=== PATIENT | male | born 1950 | race Caucasian/White ===

== ENCOUNTER 2017-11-27 10:55 | Outpatient (CLI) | payer MEDICARE ==
[2017-11-27 12:13] LABS: #Eosinphils 0.1 thou/uL (0.0-0.7); #Lymphocytes 2.1 thou/uL (1.20-3.40); #Monocytes 0.5 thou/uL (0.11-0.59); #Neutrophils 5.2 thou/uL (1.40-6.50); %Basophils 0.2 % (0.0-1.0); %Eosinophils 1.6 % (0.0-10.0); %Lymphocytes 26.8 % (21.0-51.0); %Monocytes 6.2 % (0.0-10.0); %Neutrophils 65.3 % (42.0-75.0); Hemoglobin 15.9 g/dL (14.0-18.0); Mean Corpuscular HGB CONC 33.7 g/dL (32.0-36.0); Mean Corpuscular Hemoglobin 29.7 pg (27.0-31.0); Mean Platelet Volume 6.5 fL (7.4-10.4); Platelet Count 272 thou/uL (130-400); RBC Distribution Width 12.1 % (11.5-14.5); Red Blood Cell (RBC) Count 5.37 mill/uL (4.70-6.10)
[2017-11-27 12:32] LABS: Anion Gap 11 mmol/L (10-20); BUN (Urea Nitrogen) 18 mg/dL (8.4-25.7); Calc. Creatinine Clearance 0 mL/min (70-130); Calcium 9.7 mg/dL (7.8-10.44); Carbon Dioxide 27 mmol/L (23-31); Chloride 106 mmol/L (98-107); Estimated GFR-MDRD 59; Glucose 105 mg/dL (80-115); Potassium 4.9 mmol/L (3.5-5.1); Sodium 139 mmol/L (136-145)
--- NOTE | 2017-11-28 07:35 | EKG ---
Test Reason : Blood Pressure : / mmHG Vent. Rate : 048 BPM Atrial Rate : 048 BPM P-R Int : 188 ms QRS Dur : 086 ms QT Int : 414 ms P-R-T Axes : 057 033 018 degrees QTc Int : 369 ms Marked sinus bradycardia Abnormal ECG When compared with ECG of 11-AUG-2015 09:59, No significant change was found Confirmed by DR. Светлана GONZALEZ (3) on 11/28/2017 7:34:53 AM Referred By: LAUREL Confirmed By:DR. Светлана GONZALEZ
== END 2017-11-27 10:56 | disposition home or self-care (01) ==
LOC: LABBT 10:55
PROVIDERS: ATTEND Specialist
DX: Z01.818 Encounter for other preprocedural examination (principal); K64.8 Other hemorrhoids
CPT/HCPCS: 80048; 85025; 93005; 93010

== ENCOUNTER 2017-12-03 06:28 | Day surgery (SDC) | payer MEDICARE ==
[2017-11-27 11:14] VITALS: BMI 27.1
[2017-12-03] MEDS ORDERED: Ketorolac Tromethamine 30 MG/ML VIAL ONE (07:28)
[2017-12-03] MEDS ORDERED: cefOXitin 2 GM, Syringe 1 ML in Sterile Water 10 ML SLOW IVP ONE (07:45)
[2017-12-03] MEDS ORDERED: Fentanyl 250 MCG/5 ML VIAL ONE (08:15)
[2017-12-03] MEDS ORDERED: Midazolam HCl 2 mg/2 ml Vial ONE (08:15)
[2017-12-03] MEDS ORDERED: Lidocaine 2% Jelly 5 ML TUBE ONE (08:17)
[2017-12-03] MEDS ORDERED: Bupivacaine/Epinephrine 0.25% 30 ML VIAL ONE (08:17)
[2017-12-03] MEDS ORDERED: HYDROcodone/Acetaminophen 5/325 mg Tablet ONE (11:03)
[2017-12-03] MEDS ORDERED: Glycopyrrolate 0.2 MG/ML 5 ML SYRINGE ONE (13:41)
[2017-12-03] MEDS ORDERED: ePHEDrine/0.9% NaCl/PF SYRINGE 50 mg/10 ml ONE (13:41)
[2017-12-03] MEDS ORDERED: PROPOFOL 200 MG/20 ML VIAL ONE (13:41)
[2017-12-03] MEDS ORDERED: Lidocaine 1% PF 5 ML VIAL ONE (13:41)
--- NOTE | 2017-12-04 09:38 | OP ---
DATE OF PROCEDURE: 12/03/2017 PREOPERATIVE DIAGNOSIS: Bleeding internal hemorrhoids. POSTOPERATIVE DIAGNOSIS: Bleeding internal hemorrhoids. OPERATION PERFORMED: PPH stapled hemorrhoidectomy. SURGEON: Aly Cruz M.D. ANESTHESIA: General endotracheal. INDICATIONS: The patient is a 67-year-old white male who presents with a long history of intermitten t problems with his hemorrhoids and progressive recent bleeding. He has no significant external hemo rrhoidal disease. He is taken to the operating room at this time for a stapled hemorrhoidectomy. PROCEDURE IN DETAIL: Informed consent was obtained. The patient was taken to the operating room whe re general endotracheal anesthesia was obtained with the patient in supine position. He was rolled o blanco into a prone jackknife position. Buttocks were taped apart and the perianal area was trimmed of hair. The area was prepped with Betadine, draped in sterile fashion. Local anesthetic was infiltrat ed using 0.25% Marcaine with epinephrine in a 4 quadrant intersphincteric fashion. The anus was gent ly dilated. Anal retractor was positioned and secured in place with 4 interrupted sutures of 2-0 Jose ryl. The partial obturator was used to place a pursestring suture of 2-0 Prolene several centimeters proximal to the dentate line. The stapler was obtained and maximally opened and the anvil was posit ioned above the pursestring suture. The suture was then secured snugly around the post of the staple r. The tails of the suture was then withdrawn through the lateral openings of the stapler and tracti on was applied as the stapler was closed. With the stapler at least 4 cm within the anal canal, the stapler was then fired and removed. This was inspected and found to be of appropriate width and thic kness. The staple line was carefully inspected. There was some minor oozing which was controlled wi th interrupted sutures of 3-0 Vicryl. The anal retractor was then removed. An internal dressing was placed of Gelfoam with lidocaine jelly. A dry gauze dressing was placed externally along with mesh pants. There were no complications. Blood loss was negligible. The patient tolerated the procedure well and was taken to recovery room in stable condition.
== END 2017-12-03 11:26 | disposition home or self-care (01) ==
LOC: SDC 06:28
PROVIDERS: ATTEND Specialist
PROC: 06LY0ZC Occlusion of Hemorrhoidal Plexus, Open Approach (ICD-10-PCS; principal; 2017-12-03)
DX: K64.8 Other hemorrhoids (principal); I10 Essential (primary) hypertension; E78.5 Hyperlipidemia, unspecified; Z88.8 Allergy status to other drugs, medicaments and biological substances; Z98.890 Other specified postprocedural states
CPT/HCPCS: A4216; J0131; J0694; J1885; J2250; J3010

== ENCOUNTER 2018-06-04 14:15 | Outpatient (CLI) | payer MEDICARE | END 2018-06-04 14:16 | disposition home or self-care (01) | LOC: CTENTCT 14:15 | PROVIDERS: ATTEND Specialist | DX: R51 Headache (principal) | CPT/HCPCS: 70486 ==

== ENCOUNTER 2018-06-09 14:17 | Outpatient (CLI) | payer MEDICARE ==
--- NOTE | 2018-06-09 16:55 | RAD ---
CERVICAL SPINE FIVE VIEWS: HISTORY: Chronic neck pain for decades. COMPARISON: None. FINDINGS: The lateral masses of C1 and C2 articulate appropriately. Limited evaluation of the odontoid process on the open-mouth and [id number] projections. On the AP projection, there is facet hypertrophy. Soft tissue calcification in the left neck is like ly due to carotid atherosclerosis. In the neutral position, there is mild straightening of the normal cervical lordosis. There is 1.3 m m of retrolisthesis of C4 upon C5. Upon flexion, retrolisthesis does not change. Extension images w ere not performed. There is severe loss of disk space height and osteophyte formation at C3-C4. Mod erate loss of disk space height and osteophyte formation at C4-C5, C5-C6, and C6-C7. Additionally, t here is moderate change at C7-T1. IMPRESSION: Significant multilevel degenerative disk disease, as described above. Further interrogation with MRI is recommended. POS: [facility]
== END 2018-06-09 14:18 | disposition home or self-care (01) ==
LOC: SCSRAD 14:17
PROVIDERS: ATTEND Nurse Practitioner Family
DX: M54.2 Cervicalgia (principal); M50.30 Other cervical disc degeneration, unspecified cervical region
CPT/HCPCS: 72050

== ENCOUNTER 2018-07-01 12:48 | Outpatient (CLI) | payer MEDICARE ==
--- NOTE | 2018-07-01 14:33 | MRI ---
NONCONTRAST MRI CERVICAL SPINE: Date: 07/01/18 HISTORY: Cervical spondylosis without myelopathy. COMPARISON: None available. FINDINGS: Limited visualized base of brain demonstrates interval MRI appearance. There is nonspecific heterogeneity of the bone marrow. End plate degenerative changes are seen at the C3-4 level. C2-3 Level: There is mild loss of intervertebral disc height. Central spinal canal and neural forami na are patent. C3-4 Level: There is loss of intervertebral disc height. There is a broad based disc osteophyte comp roya which narrows the ventral subarachnoid space and results in slight flattening of the anterior asp ect of the spinal cord. There is bilateral neural foraminal narrowing, greater on the right. C4-5 Level: There is loss of intervertebral disc height. There is a broad based disc osteophyte comp roya. Findings result in mild generalized narrowing of the central spinal canal. Severe bilateral neur al foraminal narrowing is present. There are facet hypertrophic changes present. C5-6 Level: There is loss of intervertebral disc space height. There is a broad based disc osteophyt e complex present. There is mild narrowing at the central spinal canal. Severe bilateral neural tate inal narrowing is present. Facet degenerative changes are noted. C6-7 Level: There is mild disc osteophyte complex with what appears to be prominent uncinate process hypertrophy on the left with resultant severe left-sided neural foraminal narrowing and moderate to severe right-sided neural foraminal narrowing. There is effacement of the left anterolateral aspect o f the ventral subarachnoid space. C7-T1 Level: There is broad based disc osteophyte complex with uncinate process hypertrophy. There i s narrowing of the ventral subarachnoid space. Moderate bilateral neural foraminal narrowing is prese nt, greater on the left. IMPRESSION: Multilevel degenerative changes are present in the cervical spine. POS: [facility]
== END 2018-07-01 12:49 | disposition home or self-care (01) ==
LOC: TBSIIMAG 12:48
PROVIDERS: ATTEND Neurological Surgery
DX: M47.812 Spondylosis without myelopathy or radiculopathy, cervical region (principal)
CPT/HCPCS: 72141

== ENCOUNTER 2018-07-30 14:06 | Outpatient (CLI) | payer MEDICARE ==
--- NOTE | 2018-07-30 16:16 | RAD ---
CERVICAL SPINE SIX VIEWS: 07/30/18 HISTORY: Low back pain with radiation to both hips, times many months. COMPARISON: None. FINDINGS: There are six lumbar type vertebral bodies. There is partial sacralization of the L6 level. Lumbar spine vertebral height is maintained. There is no fracture. There is loss of disc space height and osteophyte formation at L1-L2 and L2-L3. Vacuum disc phenomenon at L2-L3. There are hypertrophic changes involving the posterior elements at L4-L5, L5-L6. There is no spondylolysis. However, there is anterolisthesis of L5 upon L6. In the neutral position, there is 3 mm of anterolisthesis. Upon flexion, there is 4.6 mm of anterolisthesis. Upon extension, t here is 2.9 mm of anterolisthesis. IMPRESSION: 1. Spondylolisthesis without spondylolysis. 2. Six lumbar type vertebral bodies. 3. Vacuum disc phenomenon at L2-L3. POS: [facility]
== END 2018-07-30 14:07 | disposition home or self-care (01) ==
LOC: SCSRAD 14:06
PROVIDERS: ATTEND Family Medicine
DX: M54.17 Radiculopathy, lumbosacral region (principal); M43.16 Spondylolisthesis, lumbar region
CPT/HCPCS: 72100

== ENCOUNTER 2022-07-18 11:09 | Outpatient (CLI) | payer MEDICARE | END 2022-07-18 11:10 | disposition home or self-care (01) | LOC: BICRAD 11:09 | PROVIDERS: ATTEND Nurse Practitioner Family | DX: M25.551 Pain in right hip (principal) | CPT/HCPCS: 72170 ==

== ENCOUNTER 2023-12-18 11:10 | Outpatient (CLI) | payer MEDICARE | END 2023-12-18 11:11 | disposition home or self-care (01) | LOC: CT 11:10 | PROVIDERS: ATTEND Internal Medicine Gastroenterology | DX: R63.4 Abnormal weight loss (principal); R19.8 Other specified symptoms and signs involving the digestive system and abdomen; K57.30 Diverticulosis of large intestine without perforation or abscess without bleeding; K44.9 Diaphragmatic hernia without obstruction or gangrene; R91.1 Solitary pulmonary nodule | CPT/HCPCS: 74177; 82565 ==